=== PATIENT | male | born 1965 | race Caucasian/White ===

== ENCOUNTER → 2016-07-09 | Day surgery (SDC) | payer OTHER ==
[~2016-07-09] MED LIST: BUPIVACAINE HCL PF 0.75% 30 ML VIAL ONE; LACTATED RINGER'S 1000 ML INJ 1,000 ML ONE; LIDOCAINE 1.5%/EPINEPHrine 1:200,000 PF SOLN 30 ML AMP NERV BLOCK ONE; MIDAZOLAM HCL 5 MG/ML VIAL (1 ML) ONE; ONDANSETRON HCL 4 MG/2 ML VIAL IV PUSH ONE; PROPOFOL 200 MG/20 ML AMP IV ONE; ceFAZolin INJ 1,000 MG VIAL ONE
--- NOTE | 2016-07-10 14:50 | MP ---
cc: RICHY VILLARREAL M.D. DATE OF SURGERY: July 09, 2016. PREOPERATIVE DIAGNOSIS Left shoulder recurrent large rotator cuff tear. POSTOPERATIVE DIAGNOSIS Left shoulder recurrent large rotator cuff tear. SURGEON Dr. Richy Villarreal. PIPE AND TEST SUPERVISOR ADAIR Sanchez The surgical procedure was assisted by my Advanced Registered Nurse Practitioner. My SHIPPING AND RECEIVING WEIGHER presence was necessary throughout this case for the manipulation and positioning of the surgical extremity. My SHIPPING AND RECEIVING WEIGHER was assisting me throughout the duration of this procedure. The skill set of an Advance Registered Nurse Practitioner was medically necessary to complete this procedure. During the surgical case, the surgical lead was working at the back table and the Advance Registered Nurse Practitioner was directly assisting me. PROCEDURE Left shoulder arthroscopic revision rotator cuff repair of large tear with subacromial decompression. ESTIMATED BLOOD LOSS Minimal. ANESTHESIA Interscalene block and general. PROCEDURE The patient had interscalene block performed. He is brought back to the operative theater. General anesthesia was administered. He is placed into a lateral decubitus position with an axillary roll and a well-padded down leg. He was placed into 12 pounds of in-line traction. The left upper extremity was prepped and draped in usual sterile fashion. We started with diagnostic arthroscopy from the posterior portal followed by an anterior portal onto the soft spot. We identified that the glenohumeral joint had minimal chondromalacia. There was no loose bodies in the axillary pouch with mild synovitis. The biceps tendon had some mild tendinosis and moderate synovitis at the insertion site but the tendon overall was fairly well intact. There was a very large tear of the rotator cuff including the supraspinatus, infraspinatus tendons. This was retracted. We then placed the arthroscope into the subacromial space. A bursectomy was performed. There was significant adhesions of the bursa onto the undersurface of the acromion which were resected. Once we were able to resect this, we were able to find multiple edges of suture especially in the posterior cuff that were pulled out of the bone and still attached to the tendon. Removed these edges of suture. There was a large band of tissue which likely was an area that there had been some tearing from previous repair which was going from posterior to anterior which was not good viable cuff which was removed and resected. Ultimately, this created a very large U-tear of the supraspinatus and infraspinatus tendons which was retracted all the way to the glenoid at the base of the U. We mobilized the tendon using mobilizing instruments which allowed us to obtain good mobilization of the tendon. Previously the cuff repair had already been somewhat medialized on the humeral head. We used combination of shaver and oscillating and forward mode and also with a rasp on the greater tuberosity to prepare the greater tuberosity. Biceps was normally situated in groove region. We then went on to repair the rotator cuff including the entire supraspinatus and infraspinatus tendons using a modified Arthrex suture bridge fashion. We placed two medial anchors. We used both of the fiber wires in each of these anchors to create horizontal mattress stitches. In the most posterior aspect we did create one convergence stitch to help close down the U pattern. We tied all the sutures using arthroscopic knot tying techniques. This reduced the cuff very nicely. There was one small area where there was leaflet laterally that was still slightly elevated which was tagged down with a fiber link which reduced the cuff very nicely on this most lateral edge. We crisscrossed the sutures and secured these with Arthrex bio swivel lock anchors x2. Note, that the medial anchors were bio corkscrew anchors. Arthroscopic pictures were taken of the repair. The arthroscopic portals were closed with 2-0 Vicryl followed by 3-0 Nylon. The arm was dressed. The patient was placed into abduction pillow. Postop plan is to follow massive rotator cuff repair protocol. MD GEOFF Fagan/CONNER /2:39 PM /2:22 PM
== END | disposition home or self-care (01) ==
LOC: ESDC 11:01
PROVIDERS: ATTEND Orthopaedic Surgery
DX: M75.122 Complete rotator cuff tear or rupture of left shoulder, not specified as traumatic (principal)
CPT/HCPCS: 01630; 01991; 29826; 29827; 64417; C1713; J0690; J2250; J2405; J7120

== ENCOUNTER → 2016-11-29 | Day surgery (SDC) | payer OTHER ==
[~2016-11-29] MED LIST changes: -LIDOCAINE 1.5%/EPINEPHrine 1:200,000 PF SOLN 30 ML AMP NERV BLOCK ONE; +LIDOCAINE 1.5%/EPINEPHrine 1:200,000 PF SOLN 30 ML AMP ONE; -PROPOFOL 200 MG/20 ML AMP IV ONE; +PROPOFOL 500 MG/50 ML BTL IV ONE
--- NOTE | 2016-11-29 23:19 | MP ---
cc: IRAM VILLARREAL MD DATE OF SURGERY 11/29/16 PREOPERATIVE DIAGNOSIS 1. Right shoulder rotator cuff tear, 2. Acromioclavicular joint osteoarthritis, 3. Shoulder impingement, 4. Proximal biceps tendon rupture. POSTOPERATIVE DIAGNOSIS 1. Right shoulder rotator cuff tear, 2. Acromioclavicular joint osteoarthritis, 3. Shoulder impingement, 4. Proximal biceps tendon rupture. SURGEON John Villarreal MD STRATEGIC PLANNER ADAIR David The surgical procedure was assisted by my Advanced Registered Nurse Practitioner. My IN HOME BABY SITTER presence was necessary throughout this case for the manipulation and positioning of the surgical extremity. My IN HOME BABY SITTER was assisting me throughout the duration of this procedure. The skill set of an Advance Registered Nurse Practitioner was medically necessary to complete this procedure. During the surgical case, the medical or surgical instrument maker was working at the back table and the Advance Registered Nurse Practitioner was directly assisting me. PROCEDURE 1. Right shoulder arthroscopic extensive debridement 2. Biceps tenotomy, 3. Rotator cuff repair, 4. Distal clavicle excision, 5. Subacromial decompression with partial acromioplasty, 6. Resection of coracoacromial ligament. 7. Right shoulder open biceps tenodesis. ANESTHESIA General anesthesia and regional. PROCEDURE IN DETAIL The patient had regional anesthesia administered. He was brought back to the operative theater. General anesthesia was administered. He was placed into a beach-chair position. The right upper extremity was prepped and draped in usual sterile fashion. The patient received intravenous Ancef. We made a standard posterior arthroscopic portal followed by anterior portal in a soft spot for diagnostic arthroscopy. Glenohumeral joint did not show any significant arthritis. There was no loose bodies in the axillary pouch. We found that the proximal biceps tendon had severe injury with approximately 80% of the tendon was torn, but there was still about 20% of the fibers and there was still fairly large portion of the stump that was subluxing and falling into the joint with multiple frayed edges. We used combination of oscillating shaver and arthroscopic scissors to perform a debridement of this area essentially performing a tenotomy of the proximal biceps tendon, the remaining portion of it, and then extensive debridement of the remaining stump. We then found that there was tearing of the rotator interval as well just anterior to this, likely as a traumatic result of one this tendon had torn. We also found that there was significant tearing of the undersurface of the rotator cuff which looked like a full-thickness tear around the insertion of supraspinatus tendon into the bone. We then placed the arthroscope in the subacromial space, performed a bursectomy. There was some bone spur anteriorly so we did resect this using oscillating shaver and performed partial acromioplasty. We identified hypertrophy coracoacromial ligament which was then resected as part of our extensive debridement. We further evaluated the rotator cuff tear on the bursal side and found this was a full-thickness tear which was small of the insertion site of the supraspinatus tendon. We debrided the edge of this tendon. We also identified the rotator interval tear of the anterior portion of the supraspinatus tendon. We did not find that there was good tissue to repair that area more anteriorly. Therefore, we focused our attention on repair of the supraspinatus to the insertion of the greater tuberosity. We prepared the greater tuberosity with a shaver and then we repaired the rotator cuff using a modified Arthrex speed bridge, first placing a swivel lock medially that had a fiber tape associated with it. We cut the tape and then threaded each individual limb of the tape into the cuff creating a horizontal mattress type of suture and then laying this down lateral to another tenodesis screw. This gave excellent anatomic repair to the rotator cuff. We did reevaluate the tear of the interval and again did not feel that a repair of this anterior most portion would be possible based on the arthroscopic findings. We identified the acromioclavicular joint and found quite a bit of arthritis. We found areas where there was impingement from the arthritis. We then performed a distal clavicle excision using a combination of arthroscopic shaver and arthroscopic bur resecting at least 1 cm off the distal clavicle from anterior to posterior. We took arthroscopic pictures of this. We then proceeded with the open portion of the case by making a separate incision on the mid aspect of the humerus anteriorly. We identified the deltopectoral interval and identified the proximal biceps tendon rupture which was still within the tendon sheath. As soon as I opened up the tendon sheath, I could see the tendon as it was retracted. I was able to palpate all the way up to the groove and found that this was devoid of the tendon. We then pulled the tendon out to length and then secured this with an Arthrex fiber loop and achieved excellent fixation onto the tendon. We then created a bicortical small hole within the proximal humerus just adjacent to the very inferior portion of the pectoralis tendon and then we drilled a unicortical bur drill for 7-mm bur as the tendon had measured 6 mm. We placed a flip anchor button onto the sutures on the proximal biceps tendon and then threaded this through the back side hole of the proximal humerus, flipped the button and then walked the tendon into the keyhole that we had made which gave excellent position and excellent tension. We tied the knot using arthroscopic cnc cutting operator and then we further secured the tendon into this hole using a 7 x 10 biocomposite tenodesis screw and then we tied the suture on top of this as one limb was passed through the anchor. We put the elbow through range of motion, found full range of motion with excellent tension on the biceps. The wound was thoroughly irrigated and then closed with 2-0 Vicryl followed by 3-0 nylon. Postoperative plan is follow standard rotator cuff repair protocol and also proximal biceps tendon repair protocol. MD GEOFF Fagan/ /4:26 PM /10:45 PM
== END | disposition home or self-care (01) ==
LOC: ESDC 12:03
PROVIDERS: ATTEND Orthopaedic Surgery
DX: M75.121 Complete rotator cuff tear or rupture of right shoulder, not specified as traumatic (principal); M19.011 Primary osteoarthritis, right shoulder; M75.41 Impingement syndrome of right shoulder; S46.211A Strain of muscle, fascia and tendon of other parts of biceps, right arm, initial encounter
CPT/HCPCS: 01630; 01716; 01991; 23430; 29823; 29824; 29826; 29827; 64417; C1713; J0690; J2250; J2405; J7120